=== PATIENT | male | born 1960 | race Two or more races ===

== ENCOUNTER → 2022-10-01 | Emergency (ER) | payer OTHER ==
[~2022-10-01] VITALS: Ht 172.7 cm; Wt 83.0 kg
[~2022-10-01] MED LIST: GABAPENTIN800 M1 PO; GLIPIZIDE10 MG PO; HYDROCHLOROTH12.5 MG PO; LOSARTAN POTAS100 MG PO; METOPROLOL SUCC50 MG PO
== END | disposition left against medical advice (07) ==
LOC: ER 18:38
DX: Z53.21 Procedure and treatment not carried out due to patient leaving prior to being seen by health care provider (principal)